=== PATIENT | male | born 1980 | race Two or more races ===

== ENCOUNTER 2022-04-14 01:58 | Emergency (ER) | payer OTHER ==
[2022-04-14 02:14] LABS: BASOPHIL 0.4 % (0-2); HCT 42.2 % (42.0-52.0); HGB 14.7 g/dl (13.2-18.0); LYMPHOCYTE 30.2 % (15-48); MCH 30.1 pg (25.0-31.0); MCHC 34.8 g/dL (32.0-36.0); MCV 86.5 fL (78.0-100.0); MONOCYTE 5.4 % (0-12); MPV 10.5 fL (6.0-9.5); NEUTROPHIL 61.2 % (41-80); NRBC 0; PLT 277 K/uL (150-400); RBC 4.88 M/uL (4.70-6.00); RDW 12.2 % (11.5-14.0); WBC 16.8 K/uL (4.0-10.5)
[2022-04-14 02:31] LABS: ALBUMIN 3.6 g/dL (3.4-5.0); BILIRUBIN - TOTAL 0.3 mg/dL (0.2-1.0); BUN/CREAT RATIO (CALC) 14.5 RATIO; CREATININE 0.83 mg/dL (0.67-1.17); POTASSIUM 3.7 mmol/L (3.5-5.1); TOTAL PROTEIN 7.6 g/dL (6.4-8.2)
[2022-04-14] MEDS ORDERED: NORCO 5-325 TA1 EACH PO (06:05)
[2022-04-14] MEDS ORDERED: ONDANSETRON ODT4 MG PO (06:05)
[2022-04-14] MEDS ORDERED: FLEXERIL5 MG PO (06:05)
[2022-04-14] MEDS ORDERED: MIRALAX17 GM PO (06:05)
== END 2022-04-14 08:35 | disposition home or self-care (01) ==
LOC: FER 01:58
PROVIDERS: Emergency Medicine
DX: S12.690A Other displaced fracture of seventh cervical vertebra, initial encounter for closed fracture (principal); S32.018A Other fracture of first lumbar vertebra, initial encounter for closed fracture; S32.038A Other fracture of third lumbar vertebra, initial encounter for closed fracture; S00.81XA Abrasion of other part of head, initial encounter; Z23 Encounter for immunization; V47.6XXA Car passenger injured in collision with fixed or stationary object in traffic accident, initial encounter
CPT/HCPCS: 36415; 70450; 71260; 72125; 72128; 72131; 80053; 85025; 90471; 90715; 94010; J1885; J2270; J7030; Q9967